=== PATIENT | male | born 1980 | race Caucasian/White ===

== ENCOUNTER → 2020-12-08 06:59 | Outpatient (CLI) | payer OTHER, SELFPAY ==
--- NOTE | 2020-12-08 | DI.MRI.S_ITS ---
PROCEDURE: MR HIP LT WO/W CON INDICATIONS: Other instability, left hip TECHNIQUE: Noncontrast coronal T1 spin echo and STIR through the bony pelvis. Coronal and axial T2 fast spin echo with fat saturation, axial T1 spin echo with fat saturation, sagittal T1 spin echo, and oblique axial T2 fast spin echo with fat saturation through the hip. Post-contrast axial, coronal, and sagittal spin echo with fat saturation through the hip. COMPARISON: None. FINDINGS: Bones and joints: No fracture identified. Degenerative cystic change and surrounding marrow edema present at the femoral head neck junction presumably synovial herniation pit. Sacroiliac joints are unremarkable in signal intensity. There is lower lumbar spondylosis and facet arthropathy. No pathologic hip joint effusion. No evidence of osteonecrosis. Tendons and ligaments: There is minimal gluteus medius and minimus insertional tendinopathy. Proximal iliotibial band intact. Iliopsoas tendon intact. Origin of the hamstring tendon intact. The straight and reflected heads of the rectus femoris muscle origin appear intact Ligamentum teres appears intact where visualized. Labrum: Anterosuperior tear of the labrum which is poorly defined and chronic. There is adjacent partial-thickness chondral loss and mild sclerosis in the acetabulum. The alpha angle of the femur is within normal limits at less than 55 degrees. Soft tissues: Visualized muscles demonstrate normal bulk and internal signal. Quadratus femoris muscle normal. Proximal sciatic neurovascular bundle appears normal adjacent to the hamstring tendons. No free pelvic fluid. Bladder normal. Genitourinary structures and bowel loops appear normal where visualized. IMPRESSION: Anterosuperior labral tear, with associated adjacent acetabular spurring and sclerosis, and partial thickness chondral loss. Synovial herniation pit versus degenerative cystic change and marrow edema at the femoral neck junction. Dictated by: Monty Mayfield M.D. on 12/08/2020 at 9:13 Approved by: Monty Mayfield M.D. on 12/08/2020 at 9:53
== END ==
PROVIDERS: PCP Family Medicine; Referring Provider Family Medicine; Visit Provider Family Medicine
DX: M25.352 Other instability, left hip (principal); S73.192A Other sprain of left hip, initial encounter
CPT/HCPCS: 73723; A9579